=== PATIENT | male | born 1990 ===

== ENCOUNTER 2022-12-01 04:16 | Emergency (ER) | payer SELFPAY ==
[2022-12-01 04:41] VITALS: BP 135/79; PULSE 72; RESP 16; TEMP 97.9; BMI 25.7
[2022-12-01] MEDS ORDERED: SIMETHICONE 80 MG TAB.CHEW (FP) PO ONE ×2 (04:55→05:36)
[2022-12-01] MEDS ORDERED: SIMETHICONE 80 MG TAB.CHEW (FP) ONE ×2 (05:08→06:06)
== END 2022-12-01 07:01 | disposition home or self-care (01) ==
LOC: JER 04:16
DX: F41.0 Panic disorder [episodic paroxysmal anxiety] (principal); R10.9 Unspecified abdominal pain
CPT/HCPCS: 82962; 99283-25